=== PATIENT | male | born 1985 | race Caucasian/White ===

== ENCOUNTER → 2016-05-05 | Outpatient (CLI) | payer OTHER ==
[2016-05-05 15:46] LABS: BASOPHILS # (AUTO) 0.1 10^3/uL (0.0-0.1); BASOPHILS % (AUTO) 2 % (0-10); EOSINOPHILS # (AUTO) 0.1 10^3/uL (0.0-0.3); EOSINOPHILS % (AUTO) 2 % (0-10); LYMPHOCYTES # (AUTO) 3.6 X 10^3 (1.0-4.0); LYMPHOCYTES % (AUTO) 60 % (12-44); MEAN CORPUSCULAR HEMOGLOBIN 30 PG (25-34); MEAN CORPUSCULAR HGB CONC 36 G/DL (32-36); MEAN CORPUSCULAR VOLUME 83 FL (80-99); MEAN PLATELET VOLUME 9.6 FL (7.4-10.4); MONOCYTES # (AUTO) 0.6 X 10^3 (0.0-1.0); MONOCYTES % (AUTO) 10 % (0-12); NEUTROPHILS # (AUTO) 1.6 X 10^3 (1.8-7.8); NEUTROPHILS % (AUTO) 26 % (42-75); PLATELET COUNT 197 10^3/uL (130-400); RED CELL DISTRIBUTION WIDTH 12.7 % (10.0-14.5)
[2016-05-05 16:08] LABS: ALANINE AMINOTRANSFERASE 344 U/L (0-55); ALBUMIN 4.3 G/DL (3.2-4.5); ANION GAP 7 MMOL/L (5-14); ASPARTATE AMINO TRANSFERASE 148 U/L (5-34); BILIRUBIN,TOTAL 0.8 MG/DL (0.1-1.0); BLOOD UREA NITROGEN 13 MG/DL (7-18); BUN/CREATININE RATIO 12; CALCIUM 9.1 MG/DL (8.5-10.1); CARBON DIOXIDE 26 MMOL/L (21-32); CHLORIDE 106 MMOL/L (98-107); CREATININE SERUM 1.08 MG/DL (0.60-1.30); GFR ESTIMATED > 60; GLUCOSE 95 MG/DL (70-105); POTASSIUM 3.9 MMOL/L (3.6-5.0); SODIUM 139 MMOL/L (135-145); TOTAL PROTEIN 7.5 G/DL (6.4-8.2); hs C REACTIVE PROTEIN 1.11 MG/DL (0.00-0.50)
[2016-05-05 16:30] LABS: THYROID STIMULATING HORMONE 4.16 UIU/ML (0.35-4.94)
[2016-05-06 13:27] LABS: TULAREMIA ANTIBODY <1:20
[2016-05-06 13:53] LABS: EHRLICHIA CHAFFEENSIS G ABY <1:16 (<1:16)
[2016-05-06 14:23] LABS: IGG ROCKY MOUNTAIN SPOTTED FEV <1:16 (<1:16); IGM ROCKY MOUNTAIN SPOTTED FEV <1:10 (<1:10)
[2016-05-06 15:32] LABS: LYME ANTIBODY C 0.18 (0.00-0.90)
== END ==
LOC: LAB 15:25
PROVIDERS: ATTEND Nurse Practitioner
DX: R50.9 Fever, unspecified (principal); R53.83 Other fatigue; M79.1 Myalgia
CPT/HCPCS: 36415; 80053; 80074; 84443; 85025; 86141; 86618; 86666; 86668; 86757

== ENCOUNTER → 2016-05-12 | Outpatient (CLI) | payer OTHER ==
--- NOTE | 2016-05-12 16:58 | Diagnostic Imaging Report ---
PROCEDURE: CT head without contrast. TECHNIQUE: Multiple contiguous axial images were obtained through the brain without the use of intravenous contrast. Indication: Headaches for three weeks, history of arachnoid cyst. Comparison: 05/02/2014. Discussion: Simple appearing arachnoid cyst is again noted within the left middle cranial fossa with mild mass effect on the adjacent brain parenchyma, unchanged from previous exam, measuring up to 5.5 cm. Otherwise, no acute intracranial hemorrhage, mass, midline shift, or hydrocephalus. The ventricles and sulci are normal in size and configuration for age otherwise. The visualized orbits, paranasal sinuses, mastoid air cells, and calvarium are unremarkable. Impression: 1. Stable head CT including large left-sided arachnoid cyst. Dictated by: Dictated on workstation # [id number]
== END ==
LOC: RAD 16:20
PROVIDERS: ATTEND Nurse Practitioner
DX: G93.0 Cerebral cysts (principal)
CPT/HCPCS: 70450